=== PATIENT | female | born 1965 | race African-American/Black ===

== ENCOUNTER 2016-10-12 09:36 | Emergency (ER) | payer MEDICARE, MEDICAID ==
[~2016-10-12] VITALS: Ht 170.2 cm; Wt 87.0 kg
[~2016-10-12 09:36] MED LIST: AMLO10TA4 PO; CLIN150C2 PO; DICL75TA PO; FERR325T22 PO; GABA-529 PO; HYDR25TA PO; MED4 PO; NAPR-681 PO; TRAM50TA3 PO
[2016-10-12 10:08] VITALS: BP 150/98
== END 2016-10-12 12:16 | disposition home or self-care (01) ==
LOC: ER 10:56
DX: M25.551 Pain in right hip (principal); M54.5 Low back pain; I10 Essential (primary) hypertension; F17.210 Nicotine dependence, cigarettes, uncomplicated; Z98.890 Other specified postprocedural states; Z88.0 Allergy status to penicillin; Z88.6 Allergy status to analgesic agent
CPT/HCPCS: 99283

== ENCOUNTER 2018-04-27 10:22 | Emergency (ER) | payer MEDICARE, MEDICAID ==
[~2018-04-27] VITALS: Ht 167.6 cm; Wt 100.0 kg
[2018-04-27] MEDS ORDERED: KETOROLAC 30MG/ML VIAL IM ONE (12:45)
[2018-04-27 13:04] VITALS: BP 130/88
== END 2018-04-27 13:05 | disposition home or self-care (01) ==
LOC: ER 11:09
DX: B02.9 Zoster without complications (principal); I10 Essential (primary) hypertension; F17.200 Nicotine dependence, unspecified, uncomplicated; Z98.890 Other specified postprocedural states; Z88.0 Allergy status to penicillin; Z88.5 Allergy status to narcotic agent; Z88.1 Allergy status to other antibiotic agents; Z79.899 Other long term (current) drug therapy
CPT/HCPCS: 96372; 99283; J1885

== ENCOUNTER 2018-06-10 11:49 | Emergency (ER) | payer MEDICARE, MEDICAID ==
[~2018-06-10] VITALS: Ht 170.2 cm; Wt 101.8 kg
[2018-06-10] MEDS ORDERED: KETOROLAC 60MG/2ML VIAL IM STA (14:26)
[2018-06-10] MEDS ORDERED: CYCLOBENZAPRINE 10MG TABLET PO ONE (14:30)
[2018-06-10 15:55] VITALS: BP 137/84
== END 2018-06-10 16:03 | disposition home or self-care (01) ==
LOC: ER 11:49
DX: M43.6 Torticollis (principal)
CPT/HCPCS: 96372; 99283; J1885

== ENCOUNTER 2018-12-19 09:38 | Inpatient (IN) | payer MEDICARE, MEDICAID ==
[~2018-12-19] VITALS: Ht 167.6 cm; Wt 102.5 kg
[2018-12-19 11:16] LABS: CLARITY URINE CLEAR (CLEAR); COLOR URINE YELLOW (YELLOW); KETONES URINE NEGATIVE (NEGATIVE); LEUKOCYTE ESTERASE URINE NEGATIVE (NEGATIVE); NITRITE URINE NEGATIVE (NEGATIVE); OCCULT BLOOD URINE NEGATIVE (NEGATIVE); PH URINE 5.5 (4.5-8.0); PROTEIN URINE NEGATIVE (NEGATIVE); SPECIFIC GRAVITY URINE 1.008 (1.005-1.030); UROBILINOGEN URINE 0.2 E.U./dL (0.2-1.0)
[2018-12-19 11:32] LABS: *AMPHETAMINES SCREEN URINE NEGATIVE (NEGATIVE); *BARBITURATES SCREEN URINE NEGATIVE (NEGATIVE)
[2018-12-19 11:33] LABS: *BENZODIAZEPINES SCREEN URINE NEGATIVE (NEGATIVE); *COCAINE SCREEN URINE NEGATIVE (NEGATIVE); CANNABINOID URINE SCREEN PRESUMTIVE POSITIVE (NEGATIVE); METHADONE URINE SCREEN NEGATIVE (NEGATIVE); OPIATES URINE SCREEN NEGATIVE (NEGATIVE); PHENCYCLIDINE URINE SCREEN NEGATIVE (NEGATIVE)
[2018-12-19 12:00] VITALS: BP 132/81
[2018-12-19 12:07] LABS: BASOPHILS % 2.3 % (0.0-2.0); EOSINOPHILS % 4.6 % (0.0-5.0); HEMATOCRIT. 38.4 % (36.0-48.0); HEMOGLOBIN. 12.8 g/dL (12.0-16.0); LYMPHOCYTES % 44.9 % (20.0-50.0); MEAN CORPUSCULAR HEMOGLOBIN 30.1 pg (28.0-32.0); MEAN CORPUSCULAR VOLUME 90.2 fL (81.0-99.0); MEAN PLATELET VOLUME 8.2 fl (7.4-10.4); MONOCYTES % 7.8 % (2.0-8.0); NEUTROPHILS % 40.4 % (40.0-76.0); PLATELET 304 x1000/uL (130-400); RED BLOOD CELL COUNT 4.25 mill/uL (4.2-5.4); RED CELL DISTRIBUTION WIDTH 14.4 % (11.6-14.6)
[2018-12-19 12:12] LABS: CHLORIDE 107 mEq/L (98-107)
[2018-12-19 12:16] LABS: ETHANOL BLOOD < 10 mg/dL
[2018-12-19 13:11] VITALS: BP 132/81
[2018-12-19] MEDS ORDERED: ACETAMINOPHEN 325MG TABLET PO PRN (14:45)
[2018-12-19] MEDS ORDERED: ONDANSETRON HCL 4MG/2ML INJ IV PRN (14:45)
[2018-12-19 16:00] VITALS: BP 133/77
[2018-12-19 20:00] VITALS: BP 112/64
[2018-12-19] MEDS: ENOXAPARIN 30MG/0.3ML SYR SUBCUT SCH (21:00)
[2018-12-19] MEDS ORDERED: ATORVASTATIN CALCIUM 40MG TABLET PO SCH (21:00)
[2018-12-20] VITALS: BP 114/71
[2018-12-20 04:00] VITALS: BP 129/50
[2018-12-20 06:45] LABS: BASOPHILS % 1.3 % (0.0-2.0); EOSINOPHILS % 4.8 % (0.0-5.0); HEMATOCRIT. 37.5 % (36.0-48.0); HEMOGLOBIN. 12.6 g/dL (12.0-16.0); MEAN CORPUSCULAR HEMOGLOBIN 29.9 pg (28.0-32.0); MEAN PLATELET VOLUME 8.6 fl (7.4-10.4); NEUTROPHILS % 35.9 % (40.0-76.0); PLATELET 303 x1000/uL (130-400); RED BLOOD CELL COUNT 4.22 mill/uL (4.2-5.4); RED CELL DISTRIBUTION WIDTH 14.6 % (11.6-14.6)
[2018-12-20 08:00] VITALS: BP 127/86
[2018-12-20 08:12] LABS: CHLORIDE 108 mEq/L (98-107)
[2018-12-20] MEDS ORDERED: AMLODIPINE 10MG TABLET PO SCH (09:00)
[2018-12-20] MEDS ORDERED: CLOPIDOGREL 75MG TABLET PO SCH (09:00)
[2018-12-20] MEDS: ENOXAPARIN 30MG/0.3ML SYR SUBCUT SCH (09:23)
[2018-12-20 12:00] VITALS: BP 128/76
[2018-12-20] MEDS ORDERED: CLOP75TA4 MT (14:34)
[2018-12-20] MEDS ORDERED: LIP40 MT (14:34)
[2018-12-20 15:28] VITALS: BP 128/76
[2018-12-20 16:00] VITALS: BP 128/80
== END 2018-12-20 16:45 | disposition home or self-care (01) | DRG 123 ==
LOC: ER 09:55 → 5WST 11:32 → EDBEDREQ 11:35 → ENRESERV 11:55
PROVIDERS: ADMIT Internal Medicine; ATTEND Internal Medicine
DX: H53.2 Diplopia (principal); F17.210 Nicotine dependence, cigarettes, uncomplicated; E78.5 Hyperlipidemia, unspecified; I10 Essential (primary) hypertension; E66.9 Obesity, unspecified; F12.90 Cannabis use, unspecified, uncomplicated; Z86.73 Personal history of transient ischemic attack (TIA), and cerebral infarction without residual deficits; Z98.891 History of uterine scar from previous surgery; Z68.36 Body mass index [BMI] 36.0-36.9, adult; Z88.0 Allergy status to penicillin; Z88.8 Allergy status to other drugs, medicaments and biological substances; Z71.3 Dietary counseling and surveillance
CPT/HCPCS: 36415; 70551; 80048; 80061; 80305; 80320; 81003; 84443; 97162; 99285; J1650; G0480